=== PATIENT | female | born 1940 | race Caucasian/White ===

== ENCOUNTER → 2016-12-16 | Outpatient (CLI) | payer OTHER, BC ==
--- NOTE | 2016-12-16 13:59 | RAD ---
HISTORY: Bilateral knee pain. Study: Three views each of the bilateral knees. Comparison: None. Findings: No evidence for acute cortical disruption or dislocation. Mild tricompartmental osteoarthritis. Cain ateral shallow trochlear grooves with slight lateralization of the patellas. 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 No significant effusion. IMPRESSION: Chronic findings as above. Reported By:
--- NOTE | 2016-12-16 14:04 | RAD ---
HISTORY: Bilateral knee pain. Study: Three views each of the bilateral knees. Comparison: None. Findings: No evidence for acute cortical disruption or dislocation. Mild tricompartmental osteoarthritis. Bilateral shallow trochlear grooves with slight lateralization of the patellas. This likely represen ts a patellar tracking abnormality. No significant effusion. IMPRESSION: Chronic findings as above. Reported By:
== END ==
LOC: RAD 13:17
PROVIDERS: ATTEND Orthopaedic Surgery
DX: M17.0 Bilateral primary osteoarthritis of knee (principal)
CPT/HCPCS: 73564

== ENCOUNTER → 2017-01-04 | Outpatient (CLI) | payer OTHER, BC ==
--- NOTE | 2017-01-04 15:28 | RAD ---
HISTORY: Injury, fall, left hip pain Study: Left hip AP, frog-leg lateral, AP pelvis Comparison: None Findings: A single frontal view of the pelvis demonstrates the pelvic ring to be intact. No evidence for acute cortical disruption or dislocation of the hip can be observed. Frog leg views of the hip fails to d emonstrate evidence for fracture or significant joint abnormality. Impression: 1. Negative exam. Reported By:
== END ==
LOC: RAD 15:01
PROVIDERS: ATTEND Nurse Practitioner Family
DX: M25.552 Pain in left hip (principal)
CPT/HCPCS: 73501